=== PATIENT | female | born 1955 | race Two or more races ===

== ENCOUNTER 2019-09-10 04:12 | Emergency (ER) | payer OTHER ==
[~2019-09-10] VITALS: Ht 167.6 cm; Wt 88.9 kg
--- NOTE | 2019-09-10 04:51 | NUR ---
PATIENT ATE 1x PEANUT BUTTER SANDWICH AND DRANK 2x APPLE JUICE BOX.
--- NOTE | 2019-09-10 04:53 | NUR ---
PATIENT CAME IN TO ER BED 9 BIB RA C/O LOW BLOOD SUGAR. PT STATES THAT SHE TOOK MIXED INSULIN FROM THE MED THAT WAS PRESCRIBED FROM [place] AND SHE HAD LOWER BLOOD SUGAR AT AROUND THE 30s. PT WAS GIVEN DEXTROSE IN THE FIELD. PT'S BLOOD SUGAR AT 110. AAOX4. NO SOB. BREATHING EVENLY AND UNLABORED. CONNECTED TO PL [employer].
[2019-09-10 05:31] LABS: BASOPHILS % (AUTO) 0.4 % (0.0-2.0); EOSINOPHILS % (AUTO) 2.5 % (0.0-6.0); HEMATOCRIT 38 % (33-45); HEMOGLOBIN 12.4 g/dL (11.5-14.8); LYMPHOCYTES # (AUTO) 1.3 /CMM (0.8-4.8); MEAN CORPUSCULAR HGB CONC 33 g/dl (31.0-36.0); MEAN CORPUSCULAR VOLUME 84 fL (82-100); MONOCYTES # (AUTO) 0.4 /CMM (0.1-1.30); MONOCYTES % (AUTO) 6.9 % (2.0-12.0); NEUTROPHILS # (AUTO) 4.4 /CMM (1.8-8.9); NEUTROPHILS % (AUTO) 69.2 % (43.0-81.0); PLATELET COUNT (AUTO) 232 /CMM (150-450); WHITE BLOOD COUNT (AUTO) 6.3 K/uL (4.3-11.0)
[2019-09-10 05:44] LABS: CALCIUM, SERUM 8.7 mg/dL (8.5-10.1); CREATININE 0.8 mg/dL (0.6-1.3); POTASSIUM 3.2 mmol/L (3.5-5.1)
--- NOTE | 2019-09-10 05:59 | NUR ---
[facility] CALLED PER ER MD ORDER.
[2019-09-10] MEDS ORDERED: IV D5/ 0.9% NACL 1,000 ML IV ONE (06:00)
--- NOTE | 2019-09-10 07:00 | NUR ---
REPORT GIVEN TO FISCAL OFFICER FOR [facility].
--- NOTE | 2019-09-10 07:04 | NUR ---
ACCEPTED BY DR. SNEED
--- NOTE | 2019-09-10 07:04 | NUR ---
ALS PICKUP AT 0800
--- NOTE | 2019-09-10 07:11 | NUR ---
CALLED FOR REPORT, NOT AVAILABLE FOR REPORT, SAID TO CALL LATER.
--- NOTE | 2019-09-10 07:25 | NUR ---
REPORT GIVEN TO MIGUE MUNOZ AT [facility].
[2019-09-10 07:49] VITALS: BP 147/78
--- NOTE | 2019-09-10 07:49 | NUR ---
PROVIDED W APPLE JUICE. ONGOING D5NS AT 100ML/HR. PATIENT AOx4. VSS. WILL CONTINUE TO MONITOR ACCORDINGLY.
--- NOTE | 2019-09-10 08:20 | NUR ---
PICKED UP BY [facility] VIA GURNEY IN STABLE CONDITION. [facility] CLINICALS HANDED TO EMT TO BE GIVEN TO THE HOSPITAL.
== END 2019-09-10 08:20 | disposition short-term general hospital (02) ==
LOC: ER 04:13
DX: E11.649 Type 2 diabetes mellitus with hypoglycemia without coma (principal); R41.82 Altered mental status, unspecified; I10 Essential (primary) hypertension
CPT/HCPCS: 36415; 80048; 82962 ×3; 85025; 93005; 96360; 96361; 99285; J7042